=== PATIENT | male | born 1960 | race Caucasian/White ===

== ENCOUNTER 2018-05-13 23:18 | Emergency (ER) | payer SELFPAY ==
--- NOTE | 2018-05-14 00:06 | EDM.PDOC ---
ED HPI GENERAL MEDICAL PROBLEM - General Chief Complaint: Genitourinary Problem Stated Complaint: BLOOD IN URINE Time Seen by Provider: 05/13/18 23:50 Source of Information: Reports: Patient History Limitations: Reports: No Limitations - History of Present Illness INITIAL COMMENTS - FREE TEXT/NARRATIVE: 58-year-old male has notices urine has been bright red, bloody all day. He has no symptoms. His urine has been pink a few times in the past but never grossly bloody like it is at this time. He has no fevers or chills, denies weight loss, he is a nonsmoker, no abdominal pain. He does think he has developed some chronic joint stiffness and pain but otherwise no other complaint. He has no regular doctor, he has not seen a physician in years. Onset: Sudden (Started this morning) Treatments MUSIC DIRECTOR: Reports: Other (see below) Other Treatments MUSIC DIRECTOR: none Lower Abdominal Pain Score (Numeric/FACES): 3 - Related Data Allergies Allergy/AdvReac Type Severity Reaction Status Date / Time No Known Allergies Allergy Verified 05/13/18 23:40 Home Meds: Home Meds NK [No Known Home Meds] 05/13/18 [History] Past Medical History HEENT History: Reports: Impaired Vision Social & Family History - Tobacco Use Smoking Status *Q: Never Smoker - Caffeine Use Caffeine Use: Reports: Soda - Recreational Drug Use Recreational Drug Use: No ED ROS GENERAL - Review of Systems Review Of Systems: See Below Constitutional: Denies: Fever, Chills, Malaise HEENT: Reports: No Symptoms Respiratory: Denies: Shortness of Breath, Cough Cardiovascular: Denies: Chest Pain GI/Abdominal: Denies: Abdominal Pain, Diarrhea, Nausea, Vomiting : Reports: Hematuria Musculoskeletal: Reports: Joint Pain Skin: Reports: No Symptoms Neurological: Reports: No Symptoms ED EXAM, RENAL/ - Physical Exam Exam: See Below Exam Limited By: No Limitations General Appearance: Alert, No Apparent Distress Respiratory/Chest: No Respiratory Distress GI/Abdominal: Non-Tender Extremities: No: Pedal Edema Neurological: Alert, Oriented Psychiatric: Normal Affect, Normal Mood Skin Exam: Warm, Dry Course - Vital Signs Last Recorded V/S: Last Vital Signs Temp 97.5 F 05/13/18 23:48 Pulse 78 05/13/18 23:48 Resp 16 05/13/18 23:48 BP 139/102 H 05/13/18 23:48 Pulse Ox 96 05/13/18 23:48 - Orders/Labs/Meds Orders: Active Orders 24 hr Category Date Time Status UA W/MICROSCOPIC [URIN] Urgent Lab 05/13/18 23:58 Ordered Labs: Laboratory Tests 05/13/18 05/14/18 05/14/18 Range/Units 23:58 00:20 00:20 WBC 7.1 (4.5-11.0) K/uL RBC 5.24 (4.30-5.90) M/uL Hgb 16.0 H (12.0-15.0) g/dL Hct 45.8 (40.0-54.0) % MCV 87 (80-98) fL MCH 31 (27-31) pg MCHC 35 (32-36) % Plt Count 270 (150-400) K/uL Neut % (Auto) 66 (36-66) % Lymph % (Auto) 25 (24-44) % [place] % (Auto) 9 H (2-6) % Eos % (Auto) 0 L (2-4) % Baso % (Auto) 0 (0-1) % Sodium 141 (140-148) mmol/L Potassium 3.6 (3.6-5.2) mmol/L Chloride 105 (100-108) mmol/L Carbon Dioxide 25 (21-32) mmol/L Anion Gap 10.9 (5.0-14.0) mmol/L BUN 25 H (7-18) mg/dL Creatinine 1.2 (0.8-1.3) mg/dL Est Cr Clr Drug Dosing 65.46 mL/min Estimated GFR (MDRD) > 60 (>60) Glucose 116 H (74-106) mg/dL Calcium 9.1 (8.5-10.1) mg/dL Urine Color Brown Urine Appearance Cloudy Urine pH 8.0 (4.5-8.0) Ur Specific [place] 1.010 (1.008-1.030) Urine Protein Trace (NEGATIVE) mg/dL Urine Glucose (UA) Normal (NEGATIVE) mg/dL Urine Ketones 15 H (NEGATIVE) mg/dL Urine Occult Blood Large (NEGATIVE) Urine Nitrite Negative (NEGAITVE) Urine Bilirubin Negative (NEGATIVE) Urine Urobilinogen Normal (NORMAL) mg/dL Ur Leukocyte Esterase Small (NEGATIVE) Urine RBC Packed H (0-5) Urine WBC 10-20 H (0-5) Ur Epithelial Cells Few Amorphous Sediment Urine Bacteria Moderate Urine Mucus Not seen - Re-Assessments/Exams Free Text/Narrative Re-Assessment/Exam: 05/14/18 00:06 A UA was obtained, grossly it did look bloody. CBC and BMP were also obtained. 05/14/18 00:39 UA showed gross hematuria, however also WBCs and bacteria. CBC showed a normal WBC and no anemia. BMP revealed normal kidney function. Patient was started on Cipro 500 mg twice a day for a minimum of 5 days, and the importance of rechecking next week was emphasized to the patient. Further evaluation including cystoscopy or renal ultrasound may be necessary. He'll return sooner if worsening such as fever, urinary obstruction or other concerns. Departure - Departure Time of Disposition: 00:58 Disposition: Home, Self-Care 01 Condition: Good Clinical Impression: Hematuria Qualifiers: Hematuria type: gross Qualified Code(s): R31.0 - Gross hematuria - Discharge Information Instructions: Hematuria, Adult Referrals: PCP,None [Primary Care Provider] - Forms: ED Department Discharge Care Plan Goals: Take antibiotic twice daily for at least 5 days, avoid aspirin, and make calls next week to establish a primary care provider to follow-up for recheck UA in the next 7-14 days. Additional evaluation will likely be necessary as well. Return sooner if worsening such as fever, urine obstruction, or persistent heavy bleeding. - My Orders Last 24 Hours: My Active Orders 05/13/18 23:58 UA W/MICROSCOPIC [URIN] Urgent - Assessment/Plan Last 24 Hours: My Active Orders 05/13/18 23:58 UA W/MICROSCOPIC [URIN] Urgent
== END 2018-05-14 01:01 | disposition home or self-care (01) ==
LOC: JP.ED 23:18
DX: R31.0 Gross hematuria (principal)
CPT/HCPCS: 36415; 80048; 81001; 85025; 99284

== ENCOUNTER 2019-11-16 01:39 | Observation (INO) | payer MEDICAID ==
--- NOTE | 2019-11-16 02:12 | EDM.PDOC ---
ED [facility] GENERAL MEDICAL PROBLEM - General Chief Complaint: Lower Extremity Injury/Pain Stated Complaint: SPLINTER IN RIGHT FOOT Time Seen by Provider: 11/16/19 02:06 Source of Information: Reports: Patient History Limitations: Reports: No Limitations - History of Present Illness INITIAL COMMENTS - FREE TEXT/NARRATIVE: 59 years old male patient presented with a chief complaint of foreign body in his right foot. History of parkinsonism. He has a shuffling gait. He think he had a would splinter went through his foot. He stated that he pulled a piece out. No other injuries. Treatments DIRECTOR OF USER EXPERIENCE: Reports: Other (see below) Other Treatments DIRECTOR OF USER EXPERIENCE: unknown Right Foot Pain Score (Numeric/FACES): 5 - Related Data Allergies Allergy/AdvReac Type Severity Reaction Status Date / Time No Known Allergies Allergy Verified 11/16/19 01:56 Home Meds: Home Meds Cyanocobalamin (Vitamin B-12) [Vitamin B-12] 500 mg PO DAILY 11/16/19 [History] Docusate Sodium [Dok] 100 mg PO DAILY 11/16/19 [History] rOPINIRole [Requip] 1 mg PO TID 11/16/19 [History] Past Medical History HEENT History: Reports: Impaired Vision Social & Family History - Caffeine Use Caffeine Use: Reports: Soda Review of Systems - Review of Systems Review Of Systems: Comprehensive ROS is negative, except as noted in HPI. ED EXAM, GENERAL - Physical Exam Exam: See Below Exam Limited By: No Limitations General Appearance: Alert, WD/WN, No Apparent Distress Head: Atraumatic, Normocephalic Neck: Normal Inspection, Supple, Non-Tender, Full Range of Motion Respiratory/Chest: No Respiratory Distress, Lungs Clear, Normal Breath Sounds, No Accessory Muscle Use, Chest Non-Tender Cardiovascular: Normal Peripheral Pulses, Regular Rate, Rhythm, No Edema, No Gallop, No JVD, No Murmur, No Rub GI/Abdominal: Normal Bowel Sounds, Soft, Non-Tender, No Organomegaly, No Distention, No Abnormal Bruit, No Mass Extremities: Normal Inspection, Normal Range of Motion, No Pedal Edema, Normal Capillary Refill, Other (Cracked Agapito all the right foot. Foreign body sensation can be palpated underneath the skin at the dorsum of the right foot about the proximal and also the fifth metatarsal bone. CMS intact.) Skin Exam: Warm, Dry, Intact, Normal Color, No Rash Course - Vital Signs Last Recorded V/S: Last Vital Signs Temp 36.3 C 11/16/19 02:01 Pulse 83 11/16/19 02:01 Resp 14 11/16/19 02:01 BP 157/82 H 11/16/19 02:01 Pulse Ox 97 11/16/19 02:01 - Orders/Labs/Meds Orders: Active Orders 24 hr Category Date Time Status Vaccines to be Administered [RC] PER UNIT ROUTINE Care 11/16/19 02:17 Ordered Foot Comp Min 3V Rt [CR] Stat Exams 11/16/19 02:07 Ordered ceFAZolin [Ancef] 2 gm Med 11/16/19 02:22 Ordered Premix Bag 1 bag IV ONETIME Medication Orders Cefazolin Sodium/Dextrose 2 gm (/ Premix) 50 mls @ 100 mls/hr IV ONETIME ONE Stop: 11/16/19 02:51 Meds: Medications Generic Name Dose Route Start Last Admin Trade Name Freq PRN Reason Stop Dose Admin Cefazolin Sodium/Dextrose 2 gm 50 mls @ 100 mls/hr 11/16/19 02:22 / Premix IV 11/16/19 02:51 ONETIME ONE Discontinued Medications Generic Name Dose Route Start Last Admin Trade Name Freq PRN Reason Stop Dose Admin Diphtheria/Tetanus/Acell Pertussis 0.5 ml 11/16/19 02:17 Adacel IM 11/16/19 02:18 .ONCE ONE - Radiology Interpretation Free Text/Narrative:: Patient was seen and examined shortly after arrival. Stable. X-ray did not show the foreign body. I am afraid is a longer piece of wood that need to be explored in the or. I did consulted was Dr. Bajwa general surgeon [facility] and he recommended 2 g of Ancef, IV fluids, observation overnight and he will taken to the OR in the morning. Patient be admitted to [facility] for further management. Patient agrees with the plan. Stable for admission. Departure - Departure Time of Disposition: 02:26 Disposition: Refer to Observation Condition: Good Clinical Impression: Foreign body in foot, right - Discharge Information Referrals: Henry Castro MD [Primary Care Provider] - Forms: ED Department Discharge Sepsis Event Note - Evaluation Sepsis Screening Result: No Definite Risk - Focused Exam Vital Signs: Vital Signs Temp Pulse Resp BP Pulse Ox 11/16/19 02:01 36.3 C 83 14 157/82 H 97 Date Exam was Performed: 11/16/19 Time Exam was Performed: 02:23 - My Orders Last 24 Hours: My Active Orders 11/16/19 02:07 Foot Comp Min 3V Rt [CR] Stat 11/16/19 02:17 Vaccines to be Administered [RC] PER UNIT ROUTINE 11/16/19 02:22 ceFAZolin [Ancef] 2 gm Premix Bag 1 bag IV ONETIME - Assessment/Plan Last 24 Hours: My Active Orders 11/16/19 02:07 Foot Comp Min 3V Rt [CR] Stat 11/16/19 02:17 Vaccines to be Administered [RC] PER UNIT ROUTINE 11/16/19 02:22 ceFAZolin [Ancef] 2 gm Premix Bag 1 bag IV ONETIME Plan: Admit to [facility]
[2019-11-16] MEDS ORDERED: Diphtheria,Pertussis(Acell),Tetanus Vaccine 0.5 ML SDV IM ONE (02:17)
[2019-11-16] MEDS ORDERED: ceFAZolin 2 GM in Premix Bag 1 BAG IV ONE ×2 (02:22→12:00)
--- NOTE | 2019-11-16 02:44 | CRLCR ---
Indication: Wood splinter Technique: Three views Comparison: None Findings: Bones: Alignment is normal. No fractures or bone lesions. Joint spaces: Unremarkable. Soft tissues: No radiopaque foreign body seen. Dictated by Maurice Soler MD @ Nov 16 2019 2:42AM Signed by Dr. Maurice Soler @ Nov 16 2019 2:43AM
[2019-11-16] MEDS ORDERED: LORazepam 1 MG Tab PO ONE (02:54)
--- NOTE | 2019-11-16 03:21 | PCM.HP.2 ---
H&P History of Present Illness - General Date of Service: 11/16/19 Admit Problem/Dx: Admission Diagnosis/Problem Admission Diagnosis/Problem Foreign body in right foot Source of Information: Patient, Provider, RN History Limitations: Reports: No Limitations - History of Present Illness Initial Comments - Free Text/Narative: 59 years old male patient presented with a chief complaint of foreign body in his right foot. History of parkinsonism. He has a shuffling gait. He think he had a would splinter went through his foot. He stated that he pulled a piece out. No other injuries. Patient was seen and examined shortly after arrival. Stable. X-ray did not show the foreign body. I am afraid is a longer piece of wood that need to be explored in the or. I did consulted was Dr. Bajwa general surgeon [employer] and he recommended 2 g of Ancef, IV fluids, observation overnight and he will taken to the OR in the morning. Patient be admitted to [facility] [employer] for further management. Patient agrees with the plan. Stable for admission. Onset of Symptoms: Reports: Today Duration of Symptoms: Reports: Hour(s): Location: Reports: Lower Extremity, Right Quality: Reports: Ache Severity: Mild Improves with: Reports: None Worsens with: Reports: Movement Associated Symptoms: Reports: No Other Symptoms Right Foot Pain Score (Numeric/FACES): 5 - Related Data Allergies/Adverse Reactions: Allergies Allergy/AdvReac Type Severity Reaction Status Date / Time No Known Allergies Allergy Verified 11/16/19 01:56 Home Medications: Home Meds Cyanocobalamin (Vitamin B-12) [Vitamin B-12] 500 mg PO DAILY 11/16/19 [History] Docusate Sodium [Dok] 100 mg PO DAILY 11/16/19 [History] rOPINIRole [Requip] 1 mg PO TID 11/16/19 [History] Past Medical History HEENT History: Reports: Impaired Vision Neurological History: Reports: Parkinson's - Infectious Disease History Infectious Disease History: Reports: Chicken Pox Social & Family History - Tobacco Use Smoking Status *Q: Never Smoker Second Hand Smoke Exposure: No - Caffeine Use Caffeine Use: Reports: Soda - Recreational Drug Use Recreational Drug Use: No - Living Situation & Occupation Living situation: Reports: , Alone (Lives alone in [place], [place].) H&P Review of Systems - Review of Systems: Review Of Systems: See Below General: Reports: No Symptoms Musculoskeletal: Reports: Other (Parkinson's disease) Skin: Reports: Other (pain in right fot) Exam - Exam Exam: See Below - Vital Signs Vital Signs: Last Vital Signs Temp 36.3 C 11/16/19 02:01 Pulse 83 11/16/19 02:01 Resp 14 11/16/19 02:01 BP 157/82 H 11/16/19 02:01 Pulse Ox 97 11/16/19 02:01 Weight: 79.379 kg - Exam General: Alert, Oriented, 4 Neck: Supple, Trachea Midline Lungs: Clear to Auscultation, Normal Respiratory Effort Cardiovascular: Regular Rate, Regular Rhythm, Normal S1, Normal S2 GI/Abdominal Exam: Normal Bowel Sounds, Soft, Non-Tender (Male) Exam: Deferred Rectal (Males) Exam: Deferred Extremities: Normal Capillary Refill, Other (Normal Inspection, Normal Range of Motion, No Pedal Edema, Normal Capillary Refill, Other (Cracked Agapito all the right foot. Foreign body sensation can be palpated underneath the skin at the dorsum of the right foot about the proximal and also the fifth metatarsal bone. CMS intact.)) Skin: Other (right foot with puncture wound with retained wood foreign body) Neurological: Other (Parkinson) Neuro Extensive - Mental Status: Alert, Oriented x3, Normal Mood/Affect, Normal Cognition Neuro Extensive - Motor, Sensory, Reflexes: Motor/Sensory Deficits (pre-existing ) Psychiatric: Anxious Sepsis Event Note - Evaluation Sepsis Screening Result: No Definite Risk - Focused Exam Vital Signs: Vital Signs Temp Pulse Resp BP Pulse Ox 11/16/19 02:01 36.3 C 83 14 157/82 H 97 Date Exam was Performed: 11/16/19 Time Exam was Performed: 03:27 - Problem List (1) Foreign body in foot, right SNOMED Code(s): 986263901 ICD Code: S90.851A - SUPERFICIAL FOREIGN BODY, RIGHT FOOT, INITIAL ENCOUNTER Status: Acute Priority: High Current Visit: Yes Qualifiers: Encounter type: initial encounter Qualified Code(s): S90.851A - Superficial foreign body, right foot, initial encounter (2) Parkinson disease SNOMED Code(s): 07705651 ICD Code: G20 - PARKINSON'S DISEASE Status: Acute Priority: Low Current Visit: Yes Problem List Initiated/Reviewed/Updated: Yes Orders Last 24hrs: Active Orders 24 hr Category Date Time Status Patient Status Manage Transfer [TRANSFER] Routine ADT 11/16/19 03:02 Ordered Vaccines to be Administered [RC] PER UNIT ROUTINE Care 11/16/19 02:17 Active Resuscitation Status Routine Resus Stat 11/16/19 03:08 Ordered Assessment/Plan Comment:: ASSESSMENT AND PLAN: 59 years old male patient presented with a chief complaint of foreign body in his right foot. History of parkinsonism. He has a shuffling gait. He think he had a would splinter went through his foot. He stated that he pulled a piece out. No other injuries. Patient was seen and examined shortly after arrival. Stable. X-ray did not show the foreign body. I am afraid is a longer piece of wood that need to be explored in the or. I did consulted was Dr. Bajwa general surgeon [employer] and he recommended 2 g of Ancef, IV fluids, observation overnight and he will taken to the OR in the morning. [facility] [employer] [facility]. Patient agrees with the plan. Stable for admission. FOREIGN BODY RIGHT FOOT -NPO pending surgical removal -IV Ancef 2gm every 8 hours -IV Normal Saline 125 ml/hr fluids for hydration -Medication for pain and anxiety -Consult Dr. Chris Bajwa Parkinson Disease -start home medication after surgery -fall risk MAINTENANCE ISSUES -DVT Prophylaxis - ambulate -GI prophylaxis- not indicated -Fernando catheter not indicated -Nutrition NPO CODE STATUS FULL ADMISSION This patient will be admitted to observation status, expect no more than one night hospital stay for evaluation and management of problems outline above. DISPOSITION anticipate discharge to home after the hospital stay PRIMARY CARE PROVIDER Dr. Castro SURGEON Dr. Chris Bajwa HOSPITALIST Dr. King - Mortality Measure Prognosis:: Good
[2019-11-16] MEDS ORDERED: Morphine 2 MG/ML Syringe IVPUSH PRN (04:13)
[2019-11-16] MEDS ORDERED: Sodium Chloride 0.9% 1,000 ML IV SCH (04:13)
[2019-11-16] MEDS ORDERED: LORazepam 2 MG/ML SDV IV PRN (04:13)
[2019-11-16] MEDS ORDERED: Bupivacaine 0.5% 50 ML MDV ONE (07:58)
[2019-11-16] MEDS ORDERED: Lidocaine 1% with EPINEPHrine 1:100,000 50 ML MDV ONE (07:58)
[2019-11-16] MEDS ORDERED: fentaNYL 100 MCG/2 ML SDV ONE (08:14)
[2019-11-16] MEDS ORDERED: Midazolam 1 MG/ML 2 ML SDV ONE (08:14)
[2019-11-16] MEDS ORDERED: Propofol 200 MG/20 ML SDV ONE (08:14)
--- NOTE | 2019-11-16 09:14 | CONS ---
DATE OF SERVICE: 11/16/2019 REFERRING PHYSICIAN: CONSULTING PHYSICIAN: Niesha Land PA-C HISTORY OF PRESENT ILLNESS: Yogi was walking at his mom's house yesterday in stocking feet. He does have Parkinson's, so he states he was shuffling and he felt a splinter from the hardwood floor go into his right foot. He states he tried to pull it out, but was unable to. He feels it went into the right lateral side of his foot and came out underneath between his 2nd and 3rd toe. It is painful to walk. He was admitted last night n.p.o. Pain on the pain scale of 1-10, 01/08. PAST MEDICAL HISTORY: Impaired vision, Parkinson's. HOME MEDICATIONS: B12 500 mcg p.o. daily, docusate sodium 100 mg p.o. daily, and ropinirole/Requip 1 mg p.o. 3 times a day. SOCIAL HISTORY: Never smoked. Does not drink alcohol. . Lives alone. PAST MEDICAL HISTORY: Denies any fever, chills, night sweats, or fatigue. REVIEW OF SYSTEMS: NECK: Negative. CHEST: No chest pain, shortness of breath, fast or irregular heart beat. ABDOMEN: No nausea, vomiting, diarrhea, or constipation. No red or black stools. LUNGS: No cough. GENITOURINARY: Negative. EXTREMITIES: Negative except for chief complaint. NEUROLOGIC: History of Parkinson's. No active tremor noted. Denies any headache, dizziness, or loss of coordination. PSYCHIATRIC: Denies any depression or anxiety. Remainder of review of systems negative for any pertinent positives and negatives. OBJECTIVE: GENERAL: Yogi Campuzano is a 59-year-old male. He is alert and orientated. VITAL SIGNS: Height is 5 feet 7 inches, weight is 166 pounds. TPR 98.3, 86, 16, blood pressure 133/89. HEENT: Negative. NECK: Supple. HEART: Regular rate and rhythm. LUNGS: Clear. ABDOMEN: Negative. EXTREMITIES: Right foot, skin is dry. Point of entry and possible exits were marked by Chris Bajwa MD. NEUROLOGIC: Intact. PSYCHIATRIC: Mood and affect appropriate. ASSESSMENT: Foreign body, right foot. PLAN: Ancef 2 g IV on-call to OR. May have his ropinirole 1 mg 1 dose with a sip of water now. Remain n.p.o. After preoperative evaluation and discussion of possible risks and possible complications, he wishes to proceed with surgical procedure. Thank you for this consultation. Niesha Land PA-C /[id number]
[2019-11-16] MEDS: rOPINIRole 1 MG Tab PO SCH ×2 (09:41→13:21)
[2019-11-16] MEDS ORDERED: ceFAZolin 2 GM in Premix Bag 1 BAG IV SCH ×2 (10:00→17:00)
[2019-11-16] MEDS ORDERED: Lactated Ringers 1,000 ML ONE (11:13)
[2019-11-16] MEDS ORDERED: Acetaminophen 325 MG Tab PO PRN (13:13)
--- NOTE | 2019-11-16 17:11 | OR ---
DATE OF PROCEDURE: 11/16/2019 SURGEON: Chris Bajwa MD PREOPERATIVE DIAGNOSIS: Foreign body (wooden splinter through substance of right foot). POSTOPERATIVE DIAGNOSIS: Foreign body (wooden splinter through substance of right foot). OPERATIVE PROCEDURE: Removal of foreign body (wooden splinter embedded through substance of foot) (). ANESTHESIA: Local plus IV sedation. INDICATION FOR PROCEDURE: This 59-year-old stepped on a splinter last night and presented to the emergency room and was admitted overnight for antibiotics and for removal of the wooden splinter today. This was a quite long splinter as it entered on the plantar aspect of foot, more or less over the metatarsal heads, and then came through the full substance of the foot including, obviously, the musculature and fascia, where it came just underneath the skin in the lateral aspect of the midfoot, tenting up the skin at that level. The plan is to proceed with removal of the splinter by a small incision where it is tented up and will free the skin and come out in an intact manner. It will be difficult to be 100% certain of that due to the nonopaque nature of the wood as it was not at all seen on x-ray last night. Potential risks including bleeding, infection, possibility of retained foreign body within the foot were all reviewed with the patient, and he wishes to proceed. DESCRIPTION OF PROCEDURE: The patient was taken to the operating room and placed in supine position. IV sedation was administered, after which the right foot and surrounding areas were prepped and draped. Over the lateral mid-foot, the area was palpated where the wooden splinter was pushing upward and that skin was anesthetized with 1% lidocaine mixed with Marcaine. A small incision was made. After suctioning soft tissues away from the end of the splinter, this was grasped and pulled out in what appeared to be an intact manner. The direction of the fibers was such that it was relatively smooth coming out. The splinter itself measured 6 cm in length. At that point, no further problems were noted. The wound was packed open and instructions will be given. He will be given one additional dose of IV Ancef before discharge and kept on a 7-day course of Ancef for the next week. At this time, his immunization is being confirmed. He will be fitted with a surgical shoe today upon discharge. Chris Bajwa MD /[id number]
== END 2019-11-16 16:30 | disposition home or self-care (01) ==
LOC: JP.ED 01:39 → JP.MS 03:02
PROVIDERS: ADMIT Internal Medicine; ATTEND Surgery
DX: S91.341A Puncture wound with foreign body, right foot, initial encounter (principal); G20 Parkinson's disease; W22.8XXA Striking against or struck by other objects, initial encounter
CPT/HCPCS: 73630-RT; 90715; 97110-GP; 97116-GP; 97162-GP; 97535-GP; A9270-GY; J0690; J2250; J2704; J3010; J3490; J7030; J7120

== ENCOUNTER 2020-06-30 21:38 | Emergency (ER) | payer MEDICAID ==
--- NOTE | 2020-06-30 22:41 | EDM.PDOC ---
ED HPI GENERAL MEDICAL PROBLEM - General Chief Complaint: Genitourinary Problem Stated Complaint: BLOOD IN URINE Time Seen by Provider: 06/30/20 22:25 Source of Information: Reports: Patient, Old Records, RN History Limitations: Reports: No Limitations - History of Present Illness INITIAL COMMENTS - FREE TEXT/NARRATIVE: 60 yo male with Parkinson's Dz presents with gross hematuria since about mid morning today. He had mild dysuria and some urgency/double voiding as well. No fever. He is not on any anticoagulants. He had hematuria a couple yrs ago that he says was from an infection. Onset: Today Onset Date: 06/30/20 Onset Time: 10:00 Duration: Hour(s):, Constant Location: Reports: Back (low), Pelvis Quality: Reports: Dull Severity: Mild Improves with: Reports: None Worsens with: Reports: None Context: Reports: Other (See HPI) Associated Symptoms: Reports: No Other Symptoms. Denies: Fever/Chills Treatments [employer]PER[employer] HELPER: Reports: Other (see below) (none) Bladder Pain Score (Numeric/FACES): 5 - Related Data Allergies Allergy/AdvReac Type Severity Reaction Status Date / Time No Known Allergies Allergy Verified 06/30/20 22:07 Home Meds: Home Meds Cyanocobalamin (Vitamin B-12) [Vitamin B-12] 500 mg PO DAILY 11/16/19 [History] Docusate Sodium [Dok] 100 mg PO DAILY 11/16/19 [History] rOPINIRole [Requip] 1 mg PO TID 11/16/19 [History] Alfuzosin HCl [Alfuzosin HCl ER] 10 mg PO BEDTIME #30 tab.er.24h 06/30/20 [Rx] Past Medical History HEENT History: Reports: Impaired Vision Neurological History: Reports: Parkinson's, Other (See Below) Other Neuro History: PD dx 10/2018 although reports knowing "something wasn't right" for 5-6 years prior - Infectious Disease History Infectious Disease History: Reports: Chicken Pox Social & Family History - Tobacco Use Smoking Status *Q: Never Smoker - Caffeine Use Caffeine Use: Reports: Coffee - Living Situation & Occupation Living situation: Reports: , Alone (Lives alone in [facility]) ED ROS GENERAL - Review of Systems Review Of Systems: See Below Constitutional: Reports: No Symptoms GI/Abdominal: Reports: No Symptoms : Reports: Dysuria (mild), Frequency, Hematuria, Urgency. Denies: Flank Pain, Incontinence Musculoskeletal: Reports: Back Pain (sacral) Skin: Reports: No Symptoms Neurological: Reports: No Symptoms ED EXAM, RENAL/ - Physical Exam Exam: See Below Exam Limited By: No Limitations General Appearance: Alert, WD/WN, No Apparent Distress Ears: Normal External Exam, Hearing Grossly Normal Nose: Normal Inspection, No Blood Throat/Mouth: Normal Voice Head: Atraumatic, Normocephalic Respiratory/Chest: No Respiratory Distress, Lungs Clear, Normal Breath Sounds, N o Accessory Muscle Use Cardiovascular: Regular Rate, Rhythm, No Edema GI/Abdominal: Soft, Non-Tender Back Exam: No: CVA Tenderness (R), CVA Tenderness (L) Extremities: Normal Inspection Neurological: Alert, Oriented, CN II-XII Intact, Normal Cognition, No Motor/Sensory Deficits Psychiatric: Normal Affect, Normal Mood Skin Exam: Warm, Dry, Intact, Normal Color, No Rash Course - Vital Signs Text/Narrative:: Post-void bladder scan-251 ml Last Recorded V/S: Last Vital Signs Temp 36.6 C 06/30/20 23:39 Pulse 78 06/30/20 23:39 Resp 16 06/30/20 23:39 BP 141/92 H 06/30/20 23:39 Pulse Ox 98 06/30/20 23:39 - Orders/Labs/Meds Orders: Active Orders 24 hr Category Date Time Status Bladder Scan [RC] ASDIRECTED Care 06/30/20 22:34 Active Abdomen Pelvis w Cont [CT] Stat Exams 06/30/20 23:12 Taken CULTURE URINE [RM] Stat Lab 06/30/20 22:00 Received Labs: Laboratory Tests 06/30/20 06/30/20 Range/Units 22:08 23:19 Creatinine 1.3 (0.8-1.3) mg/dL Est Cr Clr Drug Dosing 55.08 mL/min Estimated GFR (MDRD) 56 L (>60) Urine Color Brown A (YELLOW) Urine Appearance Slightly cloudy A (CLEAR) Urine pH 5.5 (5.0-8.0) Ur Specific [place] 1.025 (1.008-1.030) Urine Protein 100 H (NEGATIVE) mg/dL Urine Glucose (UA) Negative (NEGATIVE) mg/dL Urine Ketones Trace H (NEGATIVE) mg/dL Urine Occult Blood Large H (NEGATIVE) Urine Nitrite Negative (NEGATIVE) Urine Bilirubin Negative (NEGATIVE) Urine Urobilinogen 0.2 (0.2-1.0) EU/dL Ur Leukocyte Esterase Negative (NEGATIVE) Urine RBC >100 H (0-5) Urine WBC Not seen (0-5) Ur Epithelial Cells Not seen Urine Bacteria Not seen Meds: Medications Discontinued Medications Generic Name Dose Route Start Last Admin Trade Name Freq PRN Reason Stop Dose Admin Sodium Chloride 73 mls @ 3.3 mls/sec 06/30/20 23:39 06/30/20 23:56 Normal Saline IV 06/30/20 23:40 3.3 mls/sec ASDIRECTED STA Administration Iopamidol 100 ml 06/30/20 23:39 06/30/20 23:56 Isovue-300 (61%) IV 06/30/20 23:40 100 ml . DIRECTED STA Administration Tamsulosin HCl 0.4 mg 06/30/20 23:18 06/30/20 23:34 Flomax PO 06/30/20 23:19 Not Given ONETIME ONE Tamsulosin HCl 0.4 mg 06/30/20 23:21 06/30/20 23:38 Flomax PO 06/30/20 23:22 0.4 mg ONETIME ONE Administration - Radiology Interpretation Free Text/Narrative:: CT abd/pelvis with IV contrast- IMPRESSION: Moderate right hydronephrosis. No obstructing calculi. Punctate calculi involving the mid zone of the right kidney. Calculi involving the bladder floor involving the right and left side versus bladder wall calcification. Prostate megaly with diffuse urinary bladder wall thickening. Diffuse colonic fecal retention. Small hiatal hernia. Dictated by Krish Farmer MD @ 07/01/2020 12:22:[address] Results Date: 07/01/20 CT Results Time: 00:20 Departure - Departure Time of Disposition: 00:30 Disposition: Home, Self-Care 01 Condition: Fair Clinical Impression: Gross hematuria, Prostate enlargement, Moderate urinary obstruction - Discharge Information *PRESCRIPTION DRUG MONITORING PROGRAM REVIEWED*: Not Applicable *COPY OF PRESCRIPTION DRUG MONITORING REPORT IN PATIENT GEORGE: Not Applicable Prescriptions: Alfuzosin HCl [Alfuzosin HCl ER] 10 mg PO BEDTIME #30 tab.er.24h Referrals: Henry Castro MD [Primary Care Provider] - Forms: ED Department Discharge Additional Instructions: Drink ample amts of fluids. Take the prostate medicine prescribed in the evening daily. Recheck with your doctor in 2-3 days to review your urine culture and possibly get a referral to urology to look at your bladder. Return if you cannot urinate or if a fever occurs. Sepsis Event Note (ED) - Evaluation Sepsis Screening Result: No Definite Risk - Focused Exam Vital Signs: Vital Signs Temp Pulse Resp BP Pulse Ox 06/30/20 23:39 36.6 C 78 16 141/92 H 98 06/30/20 22:11 36.6 C 84 16 168/107 H 97 06/30/20 21:54 36.6 C 84 16 168/107 H 97 - My Orders Last 24 Hours: My Active Orders 06/30/20 22:00 CULTURE URINE [RM] Stat 06/30/20 22:34 Bladder Scan [RC] ASDIRECTED 06/30/20 23:12 Abdomen Pelvis w Cont [CT] Stat - Assessment/Plan Last 24 Hours: My Active Orders 06/30/20 22:00 CULTURE URINE [RM] Stat 06/30/20 22:34 Bladder Scan [RC] ASDIRECTED 06/30/20 23:12 Abdomen Pelvis w Cont [CT] Stat
[2020-06-30] MEDS ORDERED: Tamsulosin 0.4 MG Cap.ER PO ONE ×2 (23:18→23:21)
[2020-06-30] MEDS: Iopamidol 612 MG/ML 100 ML Bottle IV STA (23:56)
--- NOTE | 2020-07-01 00:23 | CRLCT ---
INDICATION: Gross hematuria TECHNIQUE: CT abdomen and pelvis acquired with IV contrast. 100 cc Isovue-300 COMPARISON: None FINDINGS: Lower chest: Small hiatal hernia. Liver: Multiple small hepatic cysts. Spleen: Unremarkable. Pancreas: Unremarkable. Gallbladder and bile ducts: Unremarkable. Kidneys/urinary bladder: Moderate right hydronephrosis. No obstructing calculi. Punctate calculi involving the midzone of the right kidney. Lateral floor calculi versus bladder wall calcifications identified involving the right and left side of the bladder floor. Prostatomegaly with diffuse urinary bladder wall thickening. Adrenal glands: Unremarkable. GI tract: Diffuse colonic fecal retention. Appendix is normal. Vascular structures: Unremarkable. Lymph nodes: Unremarkable. Miscellaneous: Small fat containing umbilical hernia. No free air or significant free fluid. Pelvic Organs: Unremarkable. Bones: Grade 1 anterolisthesis L3 over L4. IMPRESSION: Moderate right hydronephrosis. No obstructing calculi. Punctate calculi involving the mid zone of the right kidney. Calculi involving the bladder floor involving the right and left side versus bladder wall calcification. Prostate megaly with diffuse urinary bladder wall thickening. Diffuse colonic fecal retention. Small hiatal hernia. Dictated by Krish Farmer MD @ 07/01/2020 12:22:49 AM Please note that all CT scans at this facility use dose modulation, iterative reconstruction, and/or weight-based dosing when appropriate to reduce radiation dose to as low as reasonably achievable. Dictated by: Krish Farmer MD @ 07/01/2020 00:22:55 (Electronically Signed)
== END 2020-07-01 00:41 | disposition home or self-care (01) ==
LOC: JP.ED 21:38
DX: N40.1 Benign prostatic hyperplasia with lower urinary tract symptoms (principal); N13.8 Other obstructive and reflux uropathy; R31.0 Gross hematuria; G20 Parkinson's disease; Z79.899 Other long term (current) drug therapy
CPT/HCPCS: 36415; 51798; 74177; 81001; 82565; 87086; 99283; 99284; A9270; J7050; Q9967

== ENCOUNTER 2020-09-25 06:48 | Emergency (ER) | payer MEDICAID ==
[2020-09-25] MEDS ORDERED: Lidocaine 2% Jelly 10 ML Urojet MUCMEM ONE (07:05)
[2020-09-25] MEDS ORDERED: Lidocaine 2% Jelly 10 ML Urojet ONE (07:06)
--- NOTE | 2020-09-25 07:43 | EDM.PDOC ---
ED HPI GENERAL MEDICAL PROBLEM - General Chief Complaint: Genitourinary Problem Stated Complaint: TROUBLE URINATING Time Seen by Provider: 09/25/20 07:36 Source of Information: Reports: Patient, RN Notes Reviewed History Limitations: Reports: No Limitations - History of Present Illness INITIAL COMMENTS - FREE TEXT/NARRATIVE: 60-year-old gentleman presents emergency department a with complaint of urinary retention, he recently underwent biopsies of the prostate yesterday started having difficulty with urination last evening. He does have follow-up with his urologist in 1 week Pelvic Pain Score (Numeric/FACES): 8 - Related Data Allergies Allergy/AdvReac Type Severity Reaction Status Date / Time No Known Allergies Allergy Verified 06/30/20 22:07 Home Meds: Home Meds Cyanocobalamin (Vitamin B-12) [Vitamin B-12] 500 mg PO DAILY 11/16/19 [History] Docusate Sodium [Dok] 100 mg PO DAILY 11/16/19 [History] rOPINIRole [Requip] 1 mg PO TID 11/16/19 [History] Alfuzosin HCl [Alfuzosin HCl ER] 10 mg PO BEDTIME #30 tab.er.24h 06/30/20 [Rx] Carbidopa/Levodopa [Carbidopa-Levodopa 25-100 Tab] 1 each PO QID 09/25/20 [History] Levofloxacin 500 mg PO DAILY 09/25/20 [History] Tamsulosin HCl 0.4 mg PO DAILY 09/25/20 [History] Past Medical History HEENT History: Reports: Impaired Vision Genitourinary History: Reports: BPH, Prostate Disorder Other Genitourinary History: PSA ELEVATION Neurological History: Reports: Parkinson's, Other (See Below) Other Neuro History: PD dx 10/2018 although reports knowing "something wasn't right" for 5-6 years prior - Infectious Disease History Infectious Disease History: Reports: Chicken Pox - Past Surgical History Cardiovascular Surgical History: Reports: None GI Surgical History: Reports: None Male Surgical History: Reports: Prostate Biopsy Musculoskeletal Surgical History: Reports: None Social & Family History - Tobacco Use Tobacco Use Status *Q: Never Tobacco User - Caffeine Use Caffeine Use: Reports: Soda - Recreational Drug Use Recreational Drug Use: No - Living Situation & Occupation Living situation: Reports: , Alone (Lives alone in [place], [place].) ED ROS GENERAL - Review of Systems Review Of Systems: See Below Constitutional: Denies: Fever, Chills Respiratory: Reports: No Symptoms GI/Abdominal: Reports: Abdominal Pain : Reports: Urinary Retention ED EXAM, RENAL/ - Physical Exam Exam: See Below Text/Narrative:: Exam is done after placement of Fernando catheter Exam Limited By: No Limitations General Appearance: Alert, WD/WN, No Apparent Distress Respiratory/Chest: No Respiratory Distress GI/Abdominal: Soft, Non-Tender Course - Vital Signs Last Recorded V/S: Last Vital Signs Temp 97.2 F 09/25/20 07:06 Pulse 76 09/25/20 07:34 Resp 16 09/25/20 07:34 BP 128/78 09/25/20 07:34 Pulse Ox 96 09/25/20 07:34 - Orders/Labs/Meds Meds: Medications Discontinued Medications Generic Name Dose Route Start Last Admin Trade Name Alexander PRN Reason Stop Dose Admin Lidocaine HCl 10 ml 09/25/20 07:05 09/25/20 07:39 Xylocaine 2% Jelly MUCMEM 09/25/20 07:06 10 ml ONETIME ONE Administration Lidocaine HCl Confirm 09/25/20 07:06 Xylocaine 2% Jelly Administered 09/25/20 07:07 Dose 10 ml .ROUTE .STK-MED ONE Departure - Departure Time of Disposition: 07:42 Disposition: Home, Self-Care 01 Condition: Fair Clinical Impression: Urinary retention - Discharge Information Instructions: Acute Urinary Retention, Male Referrals: Henry Castro MD [Primary Care Provider] - Additional Instructions: Continue to use the leg bag for comfort please contact your urologist for further follow-up and evaluation call return to the emergency department worsening of symptoms Sepsis Event Note (ED) - Evaluation Sepsis Screening Result: No Definite Risk - Focused Exam Vital Signs: Vital Signs Temp Pulse Resp BP Pulse Ox 09/25/20 07:34 76 16 128/78 96 09/25/20 07:06 97.2 F 99 18 189/125 H 99 - Assessment/Plan Plan: Assessment Acuity = acute Site and laterality = urinary retention Etiology = secondary to prostate biopsies Manifestations = none Location of injury = Home Lab values = none Plan Leg bag was placed he will contact his urologist for further follow-up This note was dictated using [employer] recognition software please call with any questions on syntax or grammar.
== END 2020-09-25 08:02 | disposition home or self-care (01) ==
LOC: JP.ED 06:48
DX: N40.1 Benign prostatic hyperplasia with lower urinary tract symptoms (principal); R33.8 Other retention of urine; G20 Parkinson's disease; Z79.899 Other long term (current) drug therapy
CPT/HCPCS: 51702; 99283-25

== ENCOUNTER 2021-04-09 23:43 | Emergency (ER) | payer MEDICARE, MEDICAID ==
--- NOTE | 2021-04-10 01:52 | EDM.PDOC ---
ED HPI GENERAL MEDICAL PROBLEM - General Chief Complaint: Genitourinary Problem Stated Complaint: BACKPAIN Time Seen by Provider: 04/10/21 00:25 Source of Information: Reports: Patient History Limitations: Reports: No Limitations - History of Present Illness INITIAL COMMENTS - FREE TEXT/NARRATIVE: Yogi is a 61-year-old male presenting to the ED for evaluation of hematuria and diarrhea both of which started about 1 week ago. Patient has a history of chronic prostatitis and occasionally gets a flare causing hematuria. He is also had ongoing issues of diarrhea and chronic pain in the abdomen and back. The patient has a history significant for Parkinson's disease and states that since his onset of Parkinson disease had intermittent episodes of constipation. The patient is in very giving of information. Abdomen Pain Score (Numeric/FACES): 6 - Related Data Allergies Allergy/AdvReac Type Severity Reaction Status Date / Time No Known Allergies Allergy Verified 04/10/21 00:26 Home Meds: Home Meds Cyanocobalamin (Vitamin B-12) [Vitamin B-12] 500 mg PO DAILY 11/16/19 [History] Docusate Sodium [Dok] 100 mg PO DAILY 11/16/19 [History] rOPINIRole [Requip] 1 mg PO TID 11/16/19 [History] Alfuzosin HCl [Alfuzosin HCl ER] 10 mg PO BEDTIME #30 tab.er.24h 06/30/20 [Rx] Carbidopa/Levodopa [Carbidopa-Levodopa 25-100 Tab] 1 each PO QID 09/25/20 [History] Levofloxacin 500 mg PO DAILY 09/25/20 [History] Tamsulosin HCl 0.4 mg PO DAILY 09/25/20 [History] Past Medical History HEENT History: Reports: Impaired Vision Cardiovascular History: Reports: None Respiratory History: Reports: None Gastrointestinal History: Reports: None Genitourinary History: Reports: BPH, Prostate Disorder, Other (See Below) Other Genitourinary History: PSA ELEVATION. Prostatitis Musculoskeletal History: Reports: None Neurological History: Reports: Parkinson's, Other (See Below) Other Neuro History: PD dx 10/2018 although reports knowing "something wasn't right" for 5-6 years prior Psychiatric History: Reports: None Endocrine/Metabolic History: Reports: None Hematologic History: Reports: None Immunologic History: Reports: None Oncologic (Cancer) History: Reports: None Dermatologic History: Reports: None - Infectious Disease History Infectious Disease History: Reports: Chicken Pox - Past Surgical History Cardiovascular Surgical History: Reports: None GI Surgical History: Reports: None Male Surgical History: Reports: Prostate Biopsy Musculoskeletal Surgical History: Reports: None Social & Family History - Tobacco Use Tobacco Use Status *Q: Never Tobacco User - Caffeine Use Caffeine Use: Reports: Coffee, Soda - Recreational Drug Use Recreational Drug Use: No - Living Situation & Occupation Living situation: Reports: , Alone (Lives alone in [place], [place].) ED ROS GENERAL - Review of Systems Review Of Systems: See Below Constitutional: Reports: No Symptoms HEENT: Reports: No Symptoms Respiratory: Reports: No Symptoms Cardiovascular: Reports: No Symptoms Endocrine: Reports: No Symptoms GI/Abdominal: Reports: Abdominal Pain, Constipation, Diarrhea (Patient reports 1 episode of bloody diarrhea today. He has had intermittent diarrhea for the last week. He says typically is more on the constipated side. He has had some straining.) : Reports: Dysuria, Frequency, Hematuria, Pain, Urgency Musculoskeletal: Reports: Back Pain (Chronic back pain) Skin: Reports: No Symptoms Neurological: Reports: Other (Parkinson's disease) Psychiatric: Reports: No Symptoms Hematologic/Lymphatic: Reports: No Symptoms Immunologic: Reports: No Symptoms ED EXAM, GI/ABD - Physical Exam Exam: See Below Exam Limited By: No Limitations General Appearance: Alert, Anxious, Mild Distress Head: Atraumatic, Normocephalic Neck: Normal Inspection Respiratory/Chest: No Respiratory Distress, Lungs Clear, Normal Breath Sounds Cardiovascular: Normal Peripheral Pulses, Regular Rate, Rhythm, No Murmur GI/Abdominal Exam: Distended (Mildly distended), Tender (Generalized mild tenderness to palpation), Abnormal Bowel Sounds (Slightly increased bowel sounds). No: Guarding, Rigid, Rebound Back Exam: Normal Inspection, Decreased Range of Motion (Secondary to Parkinson's disease) Extremities: Normal Inspection, Limited Range of Motion (Secondary to Parkinson's disease, cogwheel movement.) Neurological: Alert, Oriented, Normal Cognition, No Motor/Sensory Deficits Psychiatric: Normal Affect, Anxious Skin Exam: Warm, Dry, Intact, Normal Color Lymphatic: No Adenopathy Course - Vital Signs Last Recorded V/S: Last Vital Signs Temp 37.0 C 04/10/21 00:25 Pulse 74 04/10/21 00:25 Resp 16 04/10/21 00:25 BP 145/96 H 04/10/21 00:25 Pulse Ox 100 04/10/21 00:25 - Orders/Labs/Meds Labs: Laboratory Tests 04/10/21 04/10/21 04/10/21 Range/Units 00:37 00:37 00:37 WBC 7.2 (4.5-11.0) K/uL RBC 4.89 (4.30-5.90) M/uL Hgb 14.8 (12.0-15.0) g/dL Hct 43.3 (40.0-54.0) % MCV 89 (80-98) fL MCH 30 (27-31) pg MCHC 34 (32-36) % Plt Count 231 (150-400) K/uL Add Manual Diff Yes Neutrophils % (Manual) 66 (36-66) % Lymphocytes % (Manual) 20 L (24-44) % Monocytes % (Manual) 10 H (2-6) % Eosinophils % (Manual) 4 (2-4) % PT 11.4 (9.5-12.0) sec INR 1.05 (0.80-1.20) APTT 28.3 (27.0-36.0) sec Sodium 139 L (140-148) mmol/L Potassium 3.4 L (3.6-5.2) mmol/L Chloride 100 (100-108) mmol/L Carbon Dioxide 29 (21-32) mmol/L Anion Gap 13.4 (5.0-14.0) mmol/L BUN 20 H (7-18) mg/dL Creatinine 1.2 (0.8-1.3) mg/dL Est Cr Clr Drug Dosing 60.96 mL/min Estimated GFR (MDRD) > 60 (>60) Glucose 108 H (74-106) mg/dL Calcium 8.8 (8.5-10.1) mg/dL Total Bilirubin 0.8 (0.2-1.0) mg/dL AST 14 L (15-37) U/L ALT 25 (12-78) U/L Alkaline Phosphatase 120 H (46-116) U/L Total Protein 7.3 (6.4-8.2) g/dL Albumin 4.1 (3.4-5.0) g/dL Globulin 3.2 (2.3-3.5) g/dL Albumin/Globulin Ratio 1.3 (1.2-2.2) Urine Color (YELLOW) Urine Appearance (CLEAR) Urine pH (5.0-8.0) Ur Specific [place] (1.008-1.030) Urine Protein (NEGATIVE) mg/dL Urine Glucose (UA) (NEGATIVE) mg/dL Urine Ketones (NEGATIVE) mg/dL Urine Occult Blood (NEGATIVE) Urine Nitrite (NEGATIVE) Urine Bilirubin (NEGATIVE) Urine Urobilinogen (0.2-1.0) EU/dL Ur Leukocyte Esterase (NEGATIVE) Urine RBC (0-5) Urine WBC (0-5) Ur Epithelial Cells Amorphous Sediment Urine Bacteria Urine Mucus Urine Other 04/10/21 Range/Units 01:06 WBC (4.5-11.0) K/uL RBC (4.30-5.90) M/uL Hgb (12.0-15.0) g/dL Hct (40.0-54.0) % MCV (80-98) fL MCH (27-31) pg MCHC (32-36) % Plt Count (150-400) K/uL Add Manual Diff Neutrophils % (Manual) (36-66) % Lymphocytes % (Manual) (24-44) % Monocytes % (Manual) (2-6) % Eosinophils % (Manual) (2-4) % PT (9.5-12.0) sec INR (0.80-1.20) APTT (27.0-36.0) sec Sodium (140-148) mmol/L Potassium (3.6-5.2) mmol/L Chloride (100-108) mmol/L Carbon Dioxide (21-32) mmol/L Anion Gap (5.0-14.0) mmol/L BUN (7-18) mg/dL Creatinine (0.8-1.3) mg/dL Est Cr Clr Drug Dosing mL/min Estimated GFR (MDRD) (>60) Glucose (74-106) mg/dL Calcium (8.5-10.1) mg/dL Total Bilirubin (0.2-1.0) mg/dL AST (15-37) U/L ALT (12-78) U/L Alkaline Phosphatase (46-116) U/L Total Protein (6.4-8.2) g/dL Albumin (3.4-5.0) g/dL Globulin (2.3-3.5) g/dL Albumin/Globulin Ratio (1.2-2.2) Urine Color Red A (YELLOW) Urine Appearance Cloudy A (CLEAR) Urine pH 6.5 (5.0-8.0) Ur Specific [place] 1.015 (1.008-1.030) Urine Protein 30 H (NEGATIVE) mg/dL Urine Glucose (UA) Negative (NEGATIVE) mg/dL Urine Ketones Negative (NEGATIVE) mg/dL Urine Occult Blood Large H (NEGATIVE) Urine Nitrite Negative (NEGATIVE) Urine Bilirubin Negative (NEGATIVE) Urine Urobilinogen 0.2 (0.2-1.0) EU/dL Ur Leukocyte Esterase Large H (NEGATIVE) Urine RBC Packed H (0-5) Urine WBC 30-40 H (0-5) Ur Epithelial Cells Rare Amorphous Sediment Not seen Urine Bacteria Many Urine Mucus Not seen Urine Other - Radiology Interpretation Free Text/Narrative:: I reviewed the report on the CT of the abdomen and pelvis with contrast demonstrating prostamegaly with bladder wall thickening and innumerable small stones in the bladder. There is a small nonobstructing stone in the right kidney. There is diffuse colonic stool consistent with constipation. - Re-Assessments/Exams Free Text/Narrative Re-Assessment/Exam: 04/10/21 01:57 I reviewed the patient's labs showing a normal CBC with a leukocyte count of 7.2, hemoglobin of 14.8 with a hematocrit of 43.3 and a platelet count of 231,000. The patient's comprehensive metabolic panel was significant for sodium 139, potassium 3.4, chloride of 100 with a bicarbonate of 29, BUN of 20 with a creatinine of 1.2 and a glucose of 108. The patient's AST is 14 with an ALT of 25 and alkaline phosphatase of 120. PT is 11.4 with an INR of 1.05 and the PTT is 28.3. Urinalysis shows large blood with large leukocyte esterase. There is packed RBCs per high field view and 30-40 WBCs with many bacteria noted. Patient underwent a CT of the abdomen and pelvis demonstrating prostamegaly with bladder wall thickening and innumerable bladder stones layering out as seen in previous imaging. There is a small nonobstructing stone in the right kidney. There is diffuse colonic stool consistent with constipation. It is likely that the diarrhea is due to the liquids going around the large amount of stool in the colon and that this is more likely obstipation than constipation. Urinalysis also supports ongoing chronic prostatitis which we will treat with a course of antibiotics. For the obstipation we will put the patient on MiraLAX twice daily to see if we can help get his bowels moving. If not successful I would recommend magnesium citrate. Patient should follow-up with his primary care provider if unsuccessful in moving his bowels over the next 24 hours. Departure - Departure Time of Disposition: 02:03 Disposition: Home, Self-Care 01 Clinical Impression: Acute on chronic prostatitis, Parkinsons disease Hematuria Qualifiers: Hematuria type: unspecified type Qualified Code(s): R31.9 - Hematuria, unspecified Constipation Qualifiers: Constipation type: slow transit constipation Qualified Code(s): K59.01 - Slow transit constipation - Discharge Information Instructions: Prostatitis, [id number], Constipation, Adult, [id number] Referrals: Henry Castro MD [Primary Care Provider] - Forms: ED Department Discharge Care Plan Goals: Your labs show that you have acute on chronic prostatitis, another infection of your prostate which is likely causing hematuria. You also likely have interstitial cystitis with thickening of your bladder wall seen on CAT scan. You have an enormous amount of colonic stool consistent with slow transition constipation and it is likely you are only having the diarrhea because only the liquid is moving around the large amount of stool. I recommend taking this bottle of magnesium citrate with about 4 5 glasses of water and it should help get the bowels moving. You may want to take MiraLAX 1 capful in 6 ounces of juice twice daily for the next week until bowels become more regular. For the prostatitis, we are going to put you on Bactrim double strength 1 tablet twice daily for 10 days. I had like you to follow-up with your primary care provider, Dr. Castro early next week to ensure that we have gotten ahead of the prostatitis. Return to the ED should you have any significant worsening of symptoms. Sepsis Event Note (ED) - Evaluation Sepsis Screening Result: No Definite Risk - Focused Exam Vital Signs: Vital Signs Temp Pulse Resp BP Pulse Ox 04/10/21 00:25 37.0 C 74 16 145/96 H 100 04/10/21 00:01 37.0 C 74 16 145/96 H 100 - Problem List & Annotations (1) Parkinson disease SNOMED Code(s): 77879621 Code(s): G20 - PARKINSON'S DISEASE Status: Chronic Priority: Low Current Visit: Yes (2) Acute on chronic prostatitis SNOMED Code(s): 278636512 Code(s): N41.0 - ACUTE PROSTATITIS; N41.1 - CHRONIC PROSTATITIS Status: Acute Priority: Medium Current Visit: Yes (3) Constipation SNOMED Code(s): 62443125 Code(s): K59.00 - CONSTIPATION, UNSPECIFIED Status: Acute Priority: Medium Current Visit: Yes Qualifiers: Constipation type: slow transit constipation Qualified Code(s): K59.01 - Slow transit constipation (4) Hematuria SNOMED Code(s): 57267872 Code(s): R31.9 - HEMATURIA, UNSPECIFIED Status: Acute Priority: Medium Current Visit: Yes Qualifiers: Hematuria type: unspecified type Qualified Code(s): R31.9 - Hematuria, unspecified - Problem List Review Problem List Initiated/Reviewed/Updated: Yes
--- NOTE | 2021-04-10 01:53 | CRLCT ---
INDICATION: BACK PAIN AND HEMATURIA CT ABDOMEN AND PELVIS WITHOUT CONTRAST TECHNIQUE: Multidetector CT imaging was performed through the abdomen and pelvis without intravenous contrast administration. Coronal and sagittal reconstructions were generated. COMPARISON: 06/30/2020 CT abdomen and pelvis. FINDINGS: Lower chest: Lung bases are clear. Liver: Small hepatic cysts, similar to the prior exam. Gallbladder and bile ducts: No gallbladder wall thickening or calcified gallstones. No biliary dilation identified. Pancreas: Unremarkable. Spleen: Normal. Adrenals: No nodules or masses. Kidneys, ureters, and urinary bladder: Small nonobstructing right intrarenal stone, similar to the previous exam. No definite ureteral stone or hydronephrosis identified. Mild diffuse wall thickening of the urinary bladder, as before. Innumerable tiny dependently layering stones within the urinary bladder lumen, significantly increased in number compared to the prior exam. Gastrointestinal tract and abdominal wall: Normal caliber small bowel without evidence of obstruction. The appendix is normal. There is a large amount of stool within the colon, suggesting constipation. Vascular structures: Normal for age. Peritoneum: No free air, abscess, or significant free fluid. Lymph nodes: No pathologically enlarged nodes identified. Reproductive organs: Moderate prostatomegaly. Bones: Spinal degenerative changes. IMPRESSION: 1. Probable constipation. 2. Small nonobstructing right intrarenal stone. No definite ureteral stone or hydronephrosis identified. 3. Innumerable tiny dependently layering stones within the urinary bladder, significantly increased in number compared to the prior exam. 4. Prostatomegaly and mild diffuse bladder wall thickening. JASSI TORRES MD [employer] Dictated by Jose Torres MD @ 04/10/2021 1:50:25 AM Dictated by: Jose Torres MD @ 04/10/2021 01:52:14 (Electronically Signed)
[2021-04-10] MEDS ORDERED: Magnesium Citrate Solution 296 ML Bottle PO ONE (02:15)
== END 2021-04-10 02:33 | disposition home or self-care (01) ==
LOC: JP.ED 23:43
DX: N41.1 Chronic prostatitis (principal); N41.0 Acute prostatitis; K59.01 Slow transit constipation; G20 Parkinson's disease
CPT/HCPCS: 36415; 74176; 80053; 81001; 85025; 85610; 85730; 99283; 99284; A9270

== ENCOUNTER 2023-06-05 19:44 | Emergency (ER) | payer MEDICARE, MEDICAID ==
[2023-06-05] MEDS ORDERED: Bisacodyl 5 MG Tab PO STA (21:45)
== END 2023-06-05 22:01 | disposition home or self-care (01) ==
LOC: JP.ED 19:44
DX: K59.01 Slow transit constipation (principal); Z79.899 Other long term (current) drug therapy
CPT/HCPCS: 74019; 99283; A9270

== ENCOUNTER 2024-06-30 16:09 | Emergency (ER) | payer MEDICAID, MEDICARE, OTHER | END 2024-06-30 16:43 | disposition home or self-care (01) | LOC: JP.ED 16:09 | DX: Z76.0 Encounter for issue of repeat prescription (principal); Z79.899 Other long term (current) drug therapy | CPT/HCPCS: 99281; 99283 ==